=== PATIENT | female | born 1990 | race Caucasian/White ===

== ENCOUNTER → 2017-05-11 | Outpatient (CLI) | payer BC, OTHER ==
--- NOTE | 2017-05-11 19:54 | RADIOLOGY REPORT (SQ) ---
EXAM DESCRIPTION: MRI HEAD WITHOUT COMPLETED DATE/TIME: 05/11/2017 7:41 pm REASON FOR STUDY: BENIGN INTRACRANIAL HYPERTENSION G93.2 BENIGN INTRACRANIAL HYPERTENSION COMPARISON: None. TECHNIQUE: Multiplanar imaging includes non-contrasted T1, T2, FLAIR, and diffusion with ADC map seq uences. Images stored on PACS. LIMITATIONS: Evaluation is significantly limited due to artifact from patient's braces which obscure s portions of the face and frontal lobes especially on FLAIR, T2 weighted, and diffusion weighted reynaldo ging. FINDINGS: ANATOMY: No anomalies. Normal vascular flow voids. Partially empty sella with flattening of the pituitary. CSF SPACES: Normal in size and contour. No hemorrhage. CEREBRUM: Sulci and gyri normal in size and contour. No definite white matter signal on FLAIR imagin g. No evidence of hemorrhage, mass, or extraaxial fluid collection. POSTERIOR FOSSA: No signal alteration. No hemorrhage. No edema, masses or mass effect. Internal jayden tory canals, cerebello-pontine angles, mastoids normal. DIFFUSION IMAGING: Negative for acute or sub-acute infarction. ORBITS: Limited evaluation demonstrates no gross abnormality. PARANASAL SINUSES: Diffuse paranasal sinus disease most severely affecting the right frontal and max illary sinuses which appear to be almost completely opacified. OTHER: No other significant finding. IMPRESSION: LIMITED NONCONTRAST MRI OF THE BRAIN SECONDARY TO ARTIFACT FROM PATIENT'S BRACES. NO DE FINITE EVIDENCE OF ACUTE ISCHEMIA, HEMORRHAGE, OR MASS LESION. PARTIALLY EMPTY SELLA WITH FLATTENING OF THE PITUITARY WHICH IS NONSPECIFIC BUT CAN BE SEEN WITH PSEU DOTUMOR CEREBRAL IA AND CONSISTENT WITH PATIENT'S CLINICAL HISTORY. EXTENSIVE CHRONIC PARANASAL SINUS DISEASE. EVIDENCE OF ACUTE STROKE: NO. TECHNICAL DOCUMENTATION: JOB ID: [id number] [employer])- All Rights Reserved
== END ==
LOC: RAD 18:46
PROVIDERS: ATTEND Specialist
DX: G93.2 Benign intracranial hypertension (principal); J32.4 Chronic pansinusitis
CPT/HCPCS: 70551

== ENCOUNTER 2017-07-16 16:52 | Emergency (ER) | payer BC ==
--- NOTE | 2017-07-16 18:09 | ER Document Report ---
HPI - HPI Pain Level: 3 Notes: Patient is a 27-year-old female with history of pseudotumor cerebri who presents ED complaining of left eye redness and intermittent irritation 1-2 days. Patient was concerned about possible pinkeye so she wanted evaluated. Patient has not noticed any discharge or itching to the eye. She is still eating and drinking without difficulties. She is urinating normally and having normal bowel movements. She has not had any vision changes or headaches. Denies any recent illness. She has no other concerns or complaints at this time. Patient states that she did not have her glasses on when she did the visual acuity test prior to going into her room. Patient denies any global pain. Denies any headache, fever, head injury, neck pain, changes in vision/ speech/mentation/hearing, URI, sore throat, chest pain, palpitations, syncope, cough, shortness of breath, wheeze, dyspnea, abdominal pain, nausea/vomiting/ diarrhea, dysuria, hematuria, numbness/tingling, joint sadie, or rash. - ROS Notes: REVIEW OF SYSTEMS: CONSTITUTIONAL : Denies fever, chills, or sweats. Denies recent illness. EENT: see hpi. CARDIOVASCULAR: Denies chest pain. Denies palpitations or racing or irregular heart beat. RESPIRATORY: Denies cough, cold, or chest congestion. Denies shortness of breath, difficulty breathing, or wheezing. GASTROINTESTINAL: Denies abdominal pain or distention. Denies nausea, vomiting , or diarrhea. GENITOURINARY: Denies difficulty urinating, painful urination, burning, frequency, blood in urine, or discharge. MUSCULOSKELETAL: Denies back or neck pain or stiffness. Denies joint pain or swelling. SKIN: Denies rash, lesions or sores. NEUROLOGICAL: Denies confusion or altered mental status. Denies passing out or loss of consciousness. Denies dizziness or lightheadedness. Denies headache. Denies weakness or paralysis or loss of use of either side. Denies problems with gait or speech. Denies sensory loss, numbness, or tingling. Denies seizures. ALL OTHER SYSTEMS REVIEWED AND NEGATIVE. Dictation was performed using [employer] voice recognition software Past Medical History - Social History Smoking Status: Unknown if Ever Smoked Family History: Reviewed & Not Pertinent - Past Medical History Cardiac Medical History: Denies: Hx Coronary Artery Disease, Hx Heart Attack, Hx Hypertension Pulmonary Medical History: Denies: Hx Asthma, Hx Bronchitis, Hx COPD, Hx Pneumonia Neurological Medical History: Denies: Hx Cerebrovascular Accident, Hx Seizures Musculoskeltal Medical History: Denies Hx Arthritis - Immunizations Hx Diphtheria, Pertussis, Tetanus Vaccination: - UNSURE Vertical Provider Document - CONSTITUTIONAL Agree With Documented VS: Yes Notes: PHYSICAL EXAMINATION: GENERAL: Well-appearing, well-nourished and in no acute distress. A&Ox4 HEAD: Atraumatic, normocephalic. EYES: Pupils equal round and reactive to light, extraocular movements intact, sclera anicteric, conjunctiva left shows very mild episcleritis b/l w/o discharge or matting. Non-tender to palp of the globe and eye itself. No surrounding erythema or swelling noted. Visual acuity 20/20 b/l and in each eye (performed by myself at bedside with my own eye chart). Wood's lamp/flourescein: No abrasion, laceration, ulceration, or bunny sign noted. No obvious foreign body appreciated. ENT: EAC clear b/l. TM's intact b/l without erythema, fluid, or perforation. Nares patent and without discharge. oropharynx clear without exudates. No tonsilar hypertrophy or erythema. Moist mucous membranes. No sinus tenderness. Uvula midline. No palatine shift. No airway compromise. No drooling or hoarseness. NECK: Normal range of motion, supple without lymphadenopathy. No rigidity/ meningismus. LUNGS: Breath sounds clear to auscultation bilaterally and equal. No wheezes rales or rhonchi. HEART: Regular rate and rhythm without murmurs, rubs, gallops. Musculoskeletal: Ext b/l: FROM to passive/active. Strength 5+/5. Extremities: No cyanosis, clubbing, or edema b/l. Peripheral pulses 2+. Capillary refill less than 3 seconds. NEUROLOGICAL: Cranial nerves grossly intact. Normal speech, normal gait. Normal sensory, motor exams PSYCH: Normal mood, normal affect. SKIN: Warm, Dry, normal turgor, no rashes or lesions noted. - INFECTION CONTROL TRAVEL OUTSIDE OF THE [place] IN LAST 30 DAYS: No - RESPIRATORY O2 Sat by Pulse Oximetry: 99 Course - Re-evaluation Re-evalutation: 07/16/17 18:09 Patient is an afebrile, well-hydrated, 27-year-old female who presents the ED with episcleritis to the left eye that is mild on exam today. Vitals are stable. PE is otherwise unremarkable. Visual acuity is intact. Nontender. Wood's lamp evaluation with fluorescein did not reveal any acute pathology and no foreign body was appreciated. The tetracaine also resolved pt's symptoms after placing in eye, which helps indicate a superficial etiology. Low suspicion for any retained corneal or lid foreign body, deep space infection including orbital cellulitis/abscess, acute glaucoma, penetrating globe injury, retinal detachment, meningitis, sepsis, fracture, compartment syndrome. I will send home with a prescription for Polytrim to use as directed if development of discharge or worsening redness over the next 2-3 days. Conservative measures otherwise for symptoms with proper handwashing. Recheck with your PCM in 3-5 days. Schedule a f/u with Ophthalmology this week or next week. Return to the ED with any worsening/concerning symptoms otherwise as reviewed in discharge. Patient is in agreement. - Vital Signs Vital signs: Temp Pulse Resp BP Pulse Ox 98.5 F 78 16 133/84 H 99 07/16/17 16:59 07/16/17 16:59 07/16/17 16:59 07/16/17 16:59 07/16/17 16:59 Procedures - Eye Procedure Left Time completed: 18:00 Eye Irrigated w/ Saline (ccs): 20 Alcaine Drops Administered: Yes - tetracaine Fluorescein applied: Left Notes: 07/16/17 18:11 wood's lamp Tetracaine: resolved pt's symptoms after placing in eye flourescein: no uptake lid everted and wiped pt tolerated proc well, no complications Discharge - Discharge Clinical Impression: Episcleritis of left eye Condition: Stable Disposition: HOME, SELF-CARE Instructions: Eyedrop Use ([facility]) Additional Instructions: keep eyes clean Avoid scratching/touching eyes Wash hands regularly Use eye drops as directed--if needed with worsening redness or discharge Maintain adequate fluid intake tylenol/ibuprofen as needed over the counter cold medication as needed for symptoms F/u: with your PCM in 3-5 days for a recheck Consider consult with Ophthalmology for ongoing/worsening symptoms; recheck this week or next Return to the ED with any worsening symptoms and/or development of fever, headache, changes in vision, eye pain, worsening eye redness, redness around the eyes, purulent discharge, sore throat, facial swelling, neck pain/stiffness , chest pain, palpitations, syncope, shortness of breath, trouble breathing, abdominal pain, n/v/d, blood in stool/urine, dysuria, or other worsening symptoms that are concerning to you. Prescriptions: Polymyxin B Sulf/Trimethoprim [Polytrim Eye Drops] 1 drop OD Q3H #10 ml Forms: Elevated Blood Pressure Referrals: MAGGI WATTS MD [ACTIVE STAFF] - Follow up as needed
[2017-07-16 18:40] VITALS: BP 123/86
== END 2017-07-16 18:40 | disposition home or self-care (01) ==
LOC: ER 16:52
DX: H15.102 Unspecified episcleritis, left eye (principal); H57.12 Ocular pain, left eye; G93.2 Benign intracranial hypertension
CPT/HCPCS: 99283